=== PATIENT | male | born 1970 | race Caucasian/White ===

== ENCOUNTER 2016-08-07 04:53 | Emergency (ER) | payer SELFPAY ==
[~2016-08-07] VITALS: Ht 160 cm; Wt 82.1 kg
[2016-08-07 05:08] VITALS: BP 148/86
--- NOTE | 2016-08-07 05:16 | NUR ---
TO ER BED 7
--- NOTE | 2016-08-07 05:20 | NUR ---
PT PT PRESENTS TO ED WITH SEVERE ABD PAIN. PT IS AAOX4, DENIES SOB/CHEST PAIN, CLEAR LUNG SOUNDS, REGULAR HR. AFRIBRILE, SKIN IS WARM AND DRY TO TOUCH. C/O ABD PAIN 9/10, RADIATED TO BACK. DENIES N/V/D. ABLE TO AMBULATE AND MOVE ALL EXTREMITIES. VSS. PT POSITIONED FOR COMFORT, HOB ELEVATED, SIDERAILS UP X2, BED IS IN LOW POSITION. ER MD MADE AWARE OF PT STATUS.
--- NOTE | 2016-08-07 05:25 | NUR ---
Patient being evaluated by physician at bedside.
[2016-08-07] MEDS ORDERED: KETOROLAC 30 MG/ML VIAL IVP ONE (05:30)
[2016-08-07] MEDS ORDERED: NACL 0.9% 1,000 ML IV SCH (05:30)
--- NOTE | 2016-08-07 06:00 | NUR ---
TRANSFFERED TO CT VIA WHEELCHAIR.
--- NOTE | 2016-08-07 06:23 | NUR ---
TRANSFERED BACK FROM CT.
[2016-08-07 07:00] VITALS: BP 138/85
--- NOTE | 2016-08-07 07:00 | NUR ---
Patient discharged with v/s stable. Written and verbal after care instructions given and explained. Patient alert, oriented and verbalized understanding of instructions. Ambulatory with steady gait. All questions addressed prior to discharge. ID band removeD, IV SITE REMOVED, Patient advised to follow up with PMD. Rx of MOTRIN AND NORCO given. Patient educated on indication of medication including possible reaction and side effects. Opportunity to ask questions provided and answered.
== END 2016-08-07 07:00 | disposition home or self-care (01) ==
LOC: MED 04:53
DX: R10.13 Epigastric pain (principal); R50.9 Fever, unspecified
CPT/HCPCS: 36415; 74176; 80053; 81001; 83690; 85025; 96361; 96374; 99285; J1885; J7030